=== PATIENT | male | born 1975 | race Caucasian/White ===

== ENCOUNTER → 2024-04-22 13:36 | Outpatient (REF) | payer SELFPAY | LOC: HWRAD 13:36 | PROVIDERS: ATTENDING PHYSICIAN Physician Assistant | DX: E78.2 Mixed hyperlipidemia (principal) | CPT/HCPCS: 75571 ==

== ENCOUNTER 2025-05-05 06:26 | Day surgery (SDC) | payer BC, SELFPAY | END 2025-05-05 13:03 | disposition home or self-care (01) | LOC: GI 06:26 | PROVIDERS: ATTENDING PHYSICIAN Internal Medicine | DX: Z12.11 Encounter for screening for malignant neoplasm of colon (principal); D12.0 Benign neoplasm of cecum; Z83.719 Family history of colon polyps, unspecified | CPT/HCPCS: 45380; 88305 ==